=== PATIENT | male | born 1990 | race Caucasian/White ===

== ENCOUNTER 2017-03-13 11:17 | Emergency (ER) | payer OTHER ==
[~2017-03-13] VITALS: Ht 190.5 cm; Wt 108.9 kg
[2017-03-13] MEDS ORDERED: NKM (11:23)
[2017-03-13 11:34] VITALS: BP 151/77
[2017-03-13] MEDS ORDERED: Morphine Sulfate 2mg/ml Inj IVP ONE (12:00)
[2017-03-13 12:30] LABS: HEMATOCRIT 47.7 % (42.0-52.0); MEAN CORPUSCULAR VOLUME 90 FL (80-99); PLATELET COUNT 229 K/UL (150-450); RED BLOOD COUNT 5.33 M/UL (4.70-6.10); RED CELL DISTRIBUTION WIDTH 12.7 % (11.6-14.8); WHITE BLOOD COUNT 11.2 K/UL (4.8-10.8)
[2017-03-13 12:48] LABS: ANION GAP 9 mmol/L (5-15); BLOOD UREA NITROGEN 16 mg/dL (7-18); CALCIUM 9.1 MG/DL (8.5-10.1); CARBON DIOXIDE 27 MMOL/L (21-32); CHLORIDE 101 MMOL/L (98-107); CREATININE 1.1 MG/DL (0.55-1.30); POTASSIUM 3.6 MMOL/L (3.5-5.1); SODIUM 137 MMOL/L (136-145)
[2017-03-13 12:56] LABS: ALANINE AMINOTRANSFERASE 23 U/L (12-78); ALBUMIN 3.9 G/DL (3.4-5.0); ALBUMIN/GLOBULIN RATIO 1.1 (1.0-2.7); ALKALINE PHOSPHATASE 62 U/L (46-116); ASPARTATE AMINO TRANSFERASE 17 U/L (15-37)
[2017-03-13 13:00] VITALS: BP 138/80
[2017-03-13] MEDS ORDERED: REGLAN10 M1 ORAL (14:26)
[2017-03-13] MEDS ORDERED: PEPCID20 MG ORAL (14:26)
[2017-03-13] MEDS ORDERED: Metoclopramide 10mg/10ml Liq ORAL ONE (14:30)
--- NOTE | 2017-03-13 14:32 | Diagnostic Imaging Report ---
Indication: Pain Technique: CT of the abdomen and pelvis utilizing automated exposure control with intravenous contrast. Venous scanning performed. CT dose: Total DLP 786.2 mGycm; CTDI vol 14.12 mGy Comparison: None Findings: Minimal dependent atelectasis noted in the lung bases. Heart within upper limits for normal size. No pericardial effusion. Liver is enlarged, measuring 20 cm in craniocaudal length. No focal hepatic mass lesion is identified. Hepatic veins and portal veins appear patent. Gallbladder is unremarkable in appearance. No intrahepatic or extrahepatic biliary ductal dilatation. Spleen is mildly enlarged, measuring up to 14 cm in AP length. No focal splenic lesion is identified. Adrenal glands and pancreas are unremarkable. Kidneys enhance symmetrically. No urinary tract stones or hydronephrosis bilaterally. Bladder is unremarkable. Prostate normal in size. There is no evidence of bowel obstruction. No free intraperitoneal fluid or air. There is subtle thickening and fluid distention of some small bowel loops. These findings may be suggestive of an enteritis in the appropriate clinical setting. The appendix is normal. Abdominal aorta is normal in caliber. There are small mesenteric and retroperitoneal lymph nodes, none of which are pathologically enlarged by imaging size criteria. These may be reactive in etiology. No acute osseous abnormality is seen. IMPRESSION: Normal appendix. No evidence of acute appendicitis as questioned clinically. Questionable thickening and slight fluid distention of some small bowel loops. These findings may be reflective of an enteritis (infectious or inflammatory) in the appropriate clinical setting. No bowel obstruction. Hepatosplenomegaly. The CT scanner at [facility] is accredited by the [employer] and the scans are performed using protocols designed to limit radiation exposure to as low as reasonably achievable to attain images of sufficient resolution adequate for diagnostic evaluation.
--- NOTE | 2017-03-13 14:40 | Emergency Room Report ---
History of Present Illness General Chief Complaint: Abdominal Pain Source: Patient Present Illness HPI 26-year-old male with acute on chronic worsening of abdominal pain since last night Pain is "all over" associated with nausea He states he has seen multiple GI doctors, had colonoscopy and endoscopy without acute finding states he is on a diet now to try to limit certain foods previous abdominal or pelvic surgery or other medical history denies foreign travel, diarrhea, fever chills denies EtOH abuse, drug use, heavy NSAID use Allergies: Coded Allergies: No Known Allergies (Unverified , 03/13/17) Patient History Past Medical History: none Past Surgical History: none Pertinent Family History: none Social History: Denies: smoking, alcohol use, drug use Immunizations: UTD Reviewed Nursing Documentation: PMH: Agreed, PSxH: Agreed Nursing Documentation-PMH Past Medical History: No Stated History Review of Systems All Other Systems: negative except mentioned in HPI Physical Exam Vital Signs Date Time Temp Pulse Resp B/P (MAP) Pulse Ox O2 Delivery O2 Flow Rate FiO2 03/13/17 11:20 97.9 89 16 151/86 98 Room Air Sp02 EP Interpretation: reviewed, normal General Appearance: normal inspection, well appearing, no apparent distress, alert, GCS 15, non-toxic Head: normocephalic, atraumatic Eyes: bilateral eye PERRL, bilateral eye EOMI ENT: normal ENT inspection, hearing grossly normal, normal pharynx, no angioedema, normal voice, TMs + canals normal, uvula midline, moist mucus membranes Neck: normal inspection, full range of motion, supple, thyroid normal, no meningismus, no bony tend Respiratory: normal inspection, lungs clear, normal breath sounds, no rhonchi, no respiratory distress, no retraction, no accessory muscle use, no wheezing, speaking full sentences Cardiovascular #1: regular rate, rhythm, no edema, no JVD, normal capillary refill Gastrointestinal: normal inspection, normal bowel sounds, non tender, soft, no mass, no peritonitis, non-distended, no guarding, no hernia, no pulsatile mass Genitourinary: no CVA tenderness Musculoskeletal: normal inspection, back normal, normal range of motion, no calf tenderness, pelvis stable, Cristo's Sign negative Neurologic: normal inspection, alert, oriented x3, responsive, vacuum cooker operator III-XII nml as tested, motor strength/tone normal, cerebellar normal, normal gait, speech normal Psychiatric: normal inspection, judgement/insight normal, mood/affect normal, no suicidal/homicidal ideation, no delusions Skin: normal inspection, normal color, no rash Lymphatic: normal inspection, no adenopathy Medical Decision Making Diagnostic Impression: Primary Impression: Gastroenteritis ER Course vital signs stable, afebrile Abdomen nonfocal mild leukocytosis CT unremarkable for appendicitis, positive for enteritis Abdomen remains nonfocal and serial exam Was given additional Reglan and Pepcid Will f/up with PMD in [facility] ER course: Patient has remained stable during ED stay. Disposition: Patient is to be discharged to home. Prescriptions given are pepcid, reglan Patient is instructed to follow up with their primary care doctor within 5 days. Strict return precautions discussed with patient such as fever, chills, worsening/severe pain, nausea, vomiting, which may indicate severe illness. Patient verbalizes understanding and agrees with plan. Please note that this Emergency Department Report was dictated using [employer]absorption and adsorption engineer technology software, occasionally this can lead to erroneous entry secondary to interpretation by the dictation equipment Last Vital Signs Date Time Temp Pulse Resp B/P (MAP) Pulse Ox O2 Delivery O2 Flow Rate FiO2 03/13/17 13:00 91 20 138/80 98 Room Air 03/13/17 12:46 97.8 Status: improved Disposition: HOME, SELF-CARE Condition: Improved Scripts Famotidine (PEPCID) 20 Mg Tablet 20 MG ORAL BID for stomach pain for 7 Days, #14 TAB 0 Refills Prov: BRIGITTE MASTERS M.D. 03/13/17 Metoclopramide Hcl* (REGLAN*) 10 Mg Tablet 10 MG ORAL THREE TIMES A DAY for nausea, stomach pain for 7 Days, #30 TAB Prov: BRIGITTE MASTERS M.D. 03/13/17 Referrals: NOT CHOSEN IPA/,REFERRING (PCP) Patient Instructions: Viral Gastroenteritis, Adult Additional Instructions: - Take reglan up to 3x a day for stomach pain, nausea - Take pepcid up to 2x a day as needed for pain - Follow up with your doctor when you return home BRIGITTE MASTERS M.D. Mar 13, 2017 14:40
[2017-03-13 15:15] VITALS: BP 152/83
== END 2017-03-13 15:15 | disposition home or self-care (01) ==
LOC: EMR 14:00
DX: K52.9 Noninfective gastroenteritis and colitis, unspecified (principal); D72.829 Elevated white blood cell count, unspecified
CPT/HCPCS: 36415; 74177; 80053; 83690; 85007; 85025; 96374; 96375; 99284; J2270; J2405; Q9967; S0028